=== PATIENT | male | born 1945 | race Caucasian/White ===

== ENCOUNTER 2017-08-13 14:24 | Outpatient (CLI) | payer MEDICARE, BC ==
[2017-08-13] MEDS ORDERED: ALLOPURINOL100 M1 ORAL (16:25)
[2017-08-13] MEDS ORDERED: BENAZEPRIL HCL10 MG ORAL (16:25)
[2017-08-13] MEDS ORDERED: ATORVASTATIN CA10 MG ORAL (16:25)
--- NOTE | 2017-08-13 16:29 | GI Initial Consult Note ---
History of Present Illness General Date patient seen: Aug 13, 2017 Time patient seen: 16:21 Referring physician: Family member Reason for Consultation: ABDOMINAL PAIN Present Illness HPI Pleasant 72 year old male referred by his presents today with abdominal pain. The patient c/o of lower abdominal pain, similar to an episode he had last year where he was hospitalized and stated he had an abdominal infection. At this time, he stated he began to feel better and did not take the antibiotics that were prescribed to him. In addition, he also has abdominal bloating. His last EGD/colonoscopy was approximately 9 years ago with unremarkable results. Denies any unintentional weight loss or changes in dietary habits. No signs of abuse or neglect. Patient is not fall risk. Home Meds Reported Medications Atorvastatin Calcium* (LIPITOR*) 10 Mg Tablet, 10 MG ORAL BEDTIME, TAB 08/13/17 Benazepril Hcl* (BENAZEPRIL HCL*) Unknown Strength Tablet, ORAL DAILY, TAB 08/13/17 Allopurinol* (ALLOPURINOL*) Unknown Strength Tablet, ORAL DAILY, TAB 08/13/17 Med list reviewed/reconciled: Yes Allergies: Coded Allergies: No Known Allergies (Unverified , 08/13/17) Patient History History Provided By: Patient PMH Narrative GOUT HLD Past Surgical History: Prostatectomy approximately 12 years ago Family History Narrative Father prostate CA Social History: Reports: smoking - 2-3 cigarettes daily, alcohol use - occasional Review of Systems All Other Systems: negative except mentioned in HPI Physical Exam T 98.5 BP 122/79 P 99 93 RA HT 5'7 WT 177 lbs Sp02 EP Interpretation: reviewed, normal General Appearance: well appearing, no apparent distress, alert Head: normocephalic EENT: PERRL/EOMI, normal ENT inspection Neck: supple Respiratory: normal breath sounds, no respiratory distress Cardiovascular: normal rate Gastrointestinal: normal inspection, non tender, soft, normal bowel sounds, non -distended Rectal: deferred Genitourinary: deferred Musculoskeletal: normal inspection, back normal Neurologic: normal inspection, alert, oriented x3, responsive Psychiatric: normal inspection, judgement/insight normal, memory normal Skin: normal inspection, normal color, no rash, warm/dry, palpation normal, well hydrated Lymphatic: normal inspection, no adenopathy GI: Plan Problems: (1) Diverticulitis (2) Fatty liver (3) Hx of prostatectomy Plan patient is on antibiotics for diverticulitis RTC x 3 months for EGD/colonoscopy Seen with Dr. Bernard. Thank you for this patient referral. Minerva Sweet N.P. Aug 13, 2017 16:29
== END 2017-08-13 14:55 | disposition home or self-care (01) ==
LOC: PAN 14:24
DX: R10.30 Lower abdominal pain, unspecified (principal); E78.5 Hyperlipidemia, unspecified; F17.210 Nicotine dependence, cigarettes, uncomplicated; Z90.79 Acquired absence of other genital organ(s); K76.0 Fatty (change of) liver, not elsewhere classified; K57.90 Diverticulosis of intestine, part unspecified, without perforation or abscess without bleeding
CPT/HCPCS: 99202